=== PATIENT | female | born 1980 | race Caucasian/White ===

== ENCOUNTER 2016-08-04 07:04 | Emergency (ER) | payer BC, OTHER ==
[2016-08-04 07:25] VITALS: BP 121/70
[2016-08-04] MEDS ORDERED: Ibuprofen TAB* 400 MG PO ONE (07:42)
[2016-08-04] MEDS ORDERED: Albuterol 2.5 MG/3 ML NEB.SOL* (0.083%) INH ONE (07:51)
--- NOTE | 2016-08-04 08:31 | RAD ---
HISTORY: Fever, wheezing COMPARISONS: None VIEWS: 2: Frontal dual-energy and lateral views of the chest. FINDINGS: CARDIOMEDIASTINAL SILHOUETTE: The cardiomediastinal silhouette is normal. DANA: The dana are normal. PLEURA: The costophrenic angles are sharp. No pleural abnormalities are noted. LUNG PARENCHYMA: The lungs are clear. ABDOMEN: The upper abdomen is clear. There is no subphrenic gas. BONES AND SOFT TISSUES: No bone or soft tissue abnormalities are noted. OTHER: None. IMPRESSION: NO ACTIVE CARDIOPULMONARY DISEASE.
--- NOTE | 2016-08-04 08:56 | UC ---
Jill Jimenez Rebecca, scribed for Carlee Crum MD on 08/04/16 at 0750 . Respiratory Complaint HPI - HPI Summary HPI Summary: Pt is a 36 y/o F who presents to [facility] c/o fever, cough, diffuse body aches and chills. Sx began suddenly 3 days ago and have been constant since onset. All sx, including fever, gradually worsened in the last 24 hours. Additionally c /o wheezing and nausea secondary to mucous. Pt denies currently wheezing. Sx aggravated and alleviated by nothing. Has been treating asthma daily with Dulera and Q-nasal PACKAGE SEALER. Did not receive a flu vaccination this year. No positive sick contact. Pt counseled on using fewer blankets to allow for the fever to break. Works at [employer] and has been missing work since , 2016. Pt was driven to [facility] by her family ([id number]). Has a nebulizer at home. Uses the Nuvaring, so pt reports no chance of . PMHx asthma. PSHx tonsillectomy. FHx "undiagnosed asthma" (paternal), CAD. - History of Current Complaint Chief Complaint: UCRespiratory Stated Complaint: COUGH CONGESTION Time Seen by Provider: 08/04/16 07:39 Hx Obtained From: Patient Hx Last Menstrual Period: nuva ring no periods Onset/Duration: Sudden Onset, Lasting Days - 3 days, Still Present, Worse Since - 24 hours ago Timing: Constant Severity Initially: Moderate Severity Currently: Severe Pain Intensity: 0 Pain Scale Used: 0-10 Numeric Character: Cough: Nonproductive Aggravating Factors: Nothing Alleviating Factors: Nothing Associated Signs And Symptoms: Positive: Fever, Chills, Wheezing - Risk Factors Pulmonary Embolism Risk Factors: Negative Cardiac Risk Factors: Negative Pseudomonas Risk Factors: Negative Tuberculosis Risk Factors: Negative - Allergies/Home Medications Allergies/Adverse Reactions: Allergies Allergy/AdvReac Type Severity Reaction Status Date / Time Sulfa Drugs Allergy Unknown Unknown Verified 08/04/16 07:25 Reaction Details PMH/Surg Hx/FS Hx/Imm Hx Respiratory History Of: Reports: Asthma Neurological History Of: Reports: Migraine Psychological History Of: Reports: Depression - Surgical History Surgical History: Yes Surgery Procedure, Year, and Place: TONSILLECTOMY - Family History Known Family History: Positive: Cardiac Disease, Respiratory Disease - "Undiagnosed asthma" (paternal) - Social History Occupation: Employed Full-time Lives: With Family - and daughter Alcohol Use: Weekly Substance Use Type: None Smoking Status (MU): Never Smoked Tobacco Review of Systems Constitutional: Fever, Chills, Other - Diffuse body aches Respiratory: Cough, Other - Wheezing Gastrointestinal: Other - Nausea - secondary to mucous Musculoskeletal: Myalgia Neurological: Headache All Other Systems Reviewed And Are Negative: Yes Physical Exam Triage Information Reviewed: Yes Appearance: No Pain Distress, Well-Nourished, Ill-Appearing Vital Signs: Initial Vital Signs Temp 102.3 F 08/04/16 07:20 Pulse 110 08/04/16 07:20 Resp 20 08/04/16 07:20 BP 121/70 08/04/16 07:20 Pulse Ox 100 08/04/16 07:20 fever, tachycardia noted Vital Signs Reviewed: Yes Eyes: Positive: Conjunctiva Clear ENT: Positive: Pharyngeal erythema, TMs normal Neck: Positive: Supple, Nontender, No Lymphadenopathy Respiratory: Positive: Decreased breath sounds, Other: - Did not auscultate definite wheezing, but pt did not take a deep breath Cardiovascular: Positive: No Murmur, Pulses Normal, Brisk Capillary Refill, Tachycardia Musculoskeletal: Positive: Strength Intact, ROM Intact Neurological: Positive: Alert, Muscle Tone Normal Psychological Exam: Normal Skin Exam: Normal UC Diagnostic Evaluation - Laboratory O2 Sat by Pulse Oximetry: 100 - Radiology Xray Interpretation: No Acute Changes - CXR - No active cardiopulmonary disease Radiology Interpretation Completed By: Radiologist Re-Evaluation - Re-Evaluation First Eval Re-Evaluation Time: 08:47 Change: Improved Comment: Increased aeration, still tachycardic, appears improved. Respiratory Course/Dx - Course Course Of Treatment: Influenza A positive. Influenza B and Group A Rapid Strep negative. CXR negative. - Differential Dx/Diagnosis Differential Diagnosis/HQI/PQRI: Asthma, Bronchitis, Influenza, Lower Resp Infection Provider Diagnoses: Influenza A. asthmatic exacerbation Discharge - Discharge Plan Condition: Stable Disposition: HOME Prescriptions: Albuterol 2.5MG/3ML (0.083%)* [Ventolin 2.5 MG/3 ML NEB.RADHA*] 2.5 mg INH Q4H # 30 neb.radha Oseltamivir CAP* [Tamiflu CAP*] 75 mg PO BID #10 cap guaiFENesin/CODIEN 100MG-10MG* [Robitussin AC 100Mg-10Mg*] 5 ml PO Q4H PRN #50 ml MDD 20ml PRN Reason: Cough predniSONE TAB* [Deltasone TAB*] 40 mg PO DAILY #10 tab Patient Education Materials: Asthma (ED), Influenza (ED) Forms: *Work Release Referrals: Mary Blas MD [Primary Care Provider] - The documentation as recorded by the Jill crowder Rebecca accurately reflects the service I personally performed and the decisions made by , Carlee Crum MD.
== END 2016-08-04 08:57 | disposition home or self-care (01) ==
LOC: UCEAST 07:04
DX: J10.1 Influenza due to other identified influenza virus with other respiratory manifestations (principal); J45.901 Unspecified asthma with (acute) exacerbation; Z88.2 Allergy status to sulfonamides
CPT/HCPCS: 71020; 87502; 87651; 99212; A9270-GY; G0463

== ENCOUNTER 2018-12-18 11:26 | Emergency (ER) | payer BC, OTHER ==
[2018-12-18 11:36] VITALS: BP 102/70
[2018-12-18] MEDS ORDERED: Tetan/Diph/Pertus SYR(Tdap)* 0.5 ML SYR(BOOSTRIX) use SYR IM ONE (12:10)
[2018-12-18] MEDS ORDERED: cefTRIAXone VIAL(*) 1,000 MG VIAL IM ONE (12:43)
[2018-12-18] MEDS ORDERED: Lidocaine 1% MPF* 2 ML VIAL INJ ONE ×2 (12:44→13:08)
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
[2018-12-18] MEDS ORDERED: Lidocaine 1% MPF ** 5 ML VIAL ONE (13:11)
[2018-12-18] MEDS ORDERED: Lidocaine 1% MPF ** 5 ML VIAL IM ONE (13:17)
== END 2018-12-18 13:38 | disposition home or self-care (01) ==
LOC: UCEAST 11:26
DX: S51.852A Open bite of left forearm, initial encounter (principal); L03.114 Cellulitis of left upper limb; W55.01XA Bitten by cat, initial encounter; Y92.019 Unspecified place in single-family (private) house as the place of occurrence of the external cause; Z88.2 Allergy status to sulfonamides
CPT/HCPCS: 90471; 90715; 96372; 99212; G0463; J0696